=== PATIENT | male | born 1995 | race Caucasian/White ===

== ENCOUNTER 2021-06-19 11:25 | Emergency (ER) | payer SELFPAY ==
[2021-06-19] MEDS ORDERED: ONDANSETRON 4MG/2ML VIAL IV ONE (12:30)
[2021-06-19] MEDS ORDERED: KETOROLAC 30 MG/ML 1ML VIAL IV ONE (12:50)
[2021-06-19 14:43] VITALS: BP 116/74
== END 2021-06-19 14:45 | disposition home or self-care (01) ==
LOC: M ED 11:25 → EDBD 11:25 → M ED 14:45
DX: S16.1XXA Strain of muscle, fascia and tendon at neck level, initial encounter (principal); S40.012A Contusion of left shoulder, initial encounter; W50.0XXA Accidental hit or strike by another person, initial encounter; Y92.89 Other specified places as the place of occurrence of the external cause; Y93.16 Activity, rowing, canoeing, kayaking, rafting and tubing; Y99.9 Unspecified external cause status
CPT/HCPCS: 70450; 72125; 73030; 96374; 96375; 99284; J1885; J2405